=== PATIENT | female | born 1995 | race Caucasian/White ===

== ENCOUNTER 2019-08-27 09:24 | Inpatient (IN) ==
[2019-08-27] MEDS ORDERED: LACTATED RINGER'S 1,000 ML IV PRN (09:26)
[2019-08-27] MEDS ORDERED: OXYTOCIN 30 UNITS/500 ML BAG IV PRN ×2 (09:26→11:05)
[2019-08-27] MEDS ORDERED: OXYTOCIN 30 UNITS/500ML NSS ONE (09:37)
[2019-08-27] MEDS ORDERED: ePHEDrine sulfate 50 MG/ML AMP ONE (09:39)
[2019-08-27] MEDS ORDERED: fentaNYL citrate 100 MCG/2 ML VIAL ONE (09:39)
[2019-08-27] MEDS ORDERED: BUPIVACAINE 0.25% 30 ML VIAL ONE (09:39)
[2019-08-27] MEDS ORDERED: fentaNYL 2MCG/ML ROPIV 1.25MG/ML 100 ML BAG EPI ONE (09:40)
[2019-08-27 09:52] LABS: Hematocrit (blood only) 31.3 % (37-47); Hemoglobin 10.1 g/dL (12.0-16.0); Mean Corpuscular Hemoglobin 24.8 pg (25-34); Mean Corpuscular Volume 76.7 fL (80-100); Mean Platelet Volume 10.2 fL (7.4-10.4); Nucleated RBC # (auto) 0.02 K/uL (0-0); Nucleated RBC % (auto) 0.2 %; Platelet Count 271 K/uL (130-400); RDW Standard Deviation 42.2 fL (36.4-46.3); Red Blood Count 4.08 M/uL (4.2-5.4); White Blood Count 13.81 K/uL (4.8-10.8)
[2019-08-27] MEDS ORDERED: METHYLERGONOVINE MALEATE 0.2 MG/ML AMP ONE (09:59)
[2019-08-27 10:04] LABS: Mean Corpuscular Hgb Conc 32.3 g/dL (32-36)
--- NOTE | 2019-08-27 10:11 | Delivery Summary ---
Supervising Physician Co-Signing Physician Notes Pre-operative Diagnosis: at 39 5/7 weeks active labor Post-operative Diagnosis: same shoulder dystocia Procedure: small vaginal and right labial lac and repair EBL: 350cc Anesthesia: local lidocaine Procedure: The patient pushed for 2-3 contractions to deliver a viable female infant in murphy position. A loose nuchal cord x one was reduced. A shoulder dystocia was then encountered that lasted about 30 seconds and was resolved with Annette and suprapubic pressure. The rest of the infant was then delivered without difficulty. The baby was vigorous. The nose and mouth were again bulb suctioned and the infant was placed in the maternal abdomen for drying and attention. Cord was clamped and cut at about 45 seconds of life. Cord blood obtained. Placenta delivered spontaneous, intact with a three vessel cord. Cervix/sulci/rectum were intact. A small introital tear and right labial laceration were repaired in the normal standard fashion after infiltrating with lidocaine. Hemostasis obtained with dilute pitocin and fundal massage. Apgars were 8/9. Mother and baby doing well at the end of the delivery. Vaginal Delivery Summary Date of Service August 27, 2019
--- NOTE | 2019-08-27 10:17 | History & Physical Report ---
Date of Service August 27, 2019 Assessment & Plan (1) Normal labor: patient admitted, wanted epidural. However, too far along for this . So was agreeable to rom which was done for clear fluid. Please see delivery note for the procedure. Fetus reassuring. (2) Vaginal delivery: History of Present Illness Chief Complaint: contractions Primary Care Provider: NO PCP Patient is a 24yowf with iup at 39 5/7 weeks who presents to labor and delivery in active labor. Notes ctx started about 4am and lof about 7 am. has been uncomplicated except for diet GDM. labs--b-/ab-/pap nl/ri/rprnr/hepb-/hiv-/failed 16 week gtt, nl 2 hr/abnl 28 week 2hr/gbs neg Allergies Allergy/AdvReac Type Severity Reaction Status Date / Time No Known Drug Allergies Allergy Verified 08/17/19 14:48 Home Medications Home Medications Medication Instructions Recorded Confirmed Type 1 tab PO DAILY 06/14/19 08/26/19 History vitamin,calcium,jgqkcrpq-gasn-oytqu acid tablet acetone (urine) test strips #50 ea 06/23/19 08/17/19 Rx acetone (urine) test strips #50 ea 06/23/19 08/17/19 Rx blood sugar diagnostic strips #120 ea 06/23/19 08/17/19 Rx blood sugar diagnostic strips #120 ea 06/23/19 08/17/19 Rx ferrous sulfate 1 tab PO DAILY 06/23/19 08/26/19 History lancets 33 gauge #120 ea 06/23/19 08/17/19 Rx lancets 33 gauge #120 ea 06/23/19 08/17/19 Rx Patient History Social History Preferred Language: Romansh Communication Ability: Effective [employer] Inspector Required: No Beliefs That Will Affect Care: None marital status: Single Current Living Situation: Spouse and Family Feels Safe at Home: Yes Smoking Status: Never smoker Hx Alcohol Use: No Hx Substance Use: No OB History g1--09/04--39 weeks, , [place] g2--04/08--39 weeks, nsd, [facility] [employer] History no std, no abnl paps Review of Systems All systems reviewed & are unremarkable except as noted in HPI & below Physical Exam Constitutional: WD/WN, vitals as above Gastrointestinal (Abdomen): soft , gravid, nt Psychiatric: A+Ox3, euthymic affect Genitourinary: cx--8-9, bulging bag, 100%, 0 srom--clear fluid on glove arom for clear fluid at 9cm toco--q2-3min efm--120s with mod variability, variables with contractions. Results & Data Vital Signs (Past 12 Hours) Vital Signs Pulse BP 08/27/19 10:11 78 130/79 08/27/19 09:56 63 134/80 Code Status & VTE Plan VTE Prophylaxis Plan VTE Prophylaxis will be ordered: No
[2019-08-27] MEDS ORDERED: OXYCODONE/ACETAMINOPHEN 5mg/325mg TAB PO PRN (10:18)
[2019-08-27] MEDS ORDERED: ACETAMINOPHEN 325 MG TAB PO PRN (10:18)
[2019-08-27] MEDS: IBUPROFEN 600 MG TAB PO PRN ×3 (10:29→18:44)
[2019-08-27] MEDS ORDERED: bisacodyL 10 MG SUPP PR PRN (11:05)
[2019-08-27] MEDS ORDERED: DIPHTHERIA/TETANUS/PERTUSSIS 0.5 ML SYR/VIAL IM ONE (11:05)
[2019-08-27] MEDS ORDERED: METHYLERGONOVINE MALEATE 0.2 MG/ML AMP IM ONE (11:05)
[2019-08-27] MEDS ORDERED: SUPERCREAM 0.870% 15 GM JAR EXT PRN (11:05)
[2019-08-27] MEDS ORDERED: BENZOCAINE 20% AER SPR 82.5 GM CAN EXT PRN (11:05)
[2019-08-27] MEDS ORDERED: HYDROCORTISONE ACETATE 25 MG SUPP PR PRN (11:05)
[2019-08-27] MEDS: DOCUSATE SODIUM 100 MG CAP PO SCH (21:02)
[2019-08-28] MEDS: IBUPROFEN 600 MG TAB PO PRN ×3 (00:07→15:19)
--- NOTE | 2019-08-28 05:59 | Obstetrical Progress Note ---
Date of Service August 28, 2019 Assessment & Plan (1) Vaginal delivery: 24 y/o GDM s/p @ 39.5 weeks complicated by shoulder dystocia 30 seconds, resolved with Annette and suprapubic pressure. - PPD #1 - GBS negative, Blood Type B negative - Feels well today. Eating well, voiding well, ambulating well. - Pain well controlled. - Routine care - After discharge will have [address] Abdi. Supervising Physician Co-Signing Physician Notes Resident Physician Supervision Note: I interviewed and examined the patient. Discussed with Dr. Mackey and agree with findings and plan as documented in the note. Any exceptions or clarifications are listed here: Doing well. Desires d/c today. Instructions given. Documented By: Jessica Abdi MD, FACOG Subjective Doing well this morning with no questions and no concerns. Discussed working on walking eating and today. Review of Systems Constitutional: no fever and no chills Respiratory: no cough denies wheezing denies shortness of breath Cardiovascular: no chest pain and no palpitations Genitourinary: no dysuria, no urinary frequency and no urinary urgency Neurologic: denies headache Physical Exam Physical Exam: Abdomen soft and + BS fundus is firm and at the umbilicus Constitutional: well developed and well nourished; no acute distress Respiratory: normal respiratory effort, lungs clear to auscultation Cardiovascular: RRR, no murmur, no edema Results & Data Vital Signs (Past 12 Hours) Vital Signs Temp Pulse Pulse Resp BP Pulse Ox 08/28/19 04:25 36.5 C 73 18 109/69 08/28/19 00:05 36.5 C 97 H 18 103/65 08/27/19 20:04 37.3 C 78 16 110/73 99 Resident Activity Tracking Resident Involvement: Resident Care Provided Care Provided: Adult Hospital Medicine
[2019-08-28 06:36] LABS: Hematocrit (blood only) 26.2 % (37-47); Hemoglobin 8.4 g/dL (12.0-16.0)
[2019-08-28] MEDS ORDERED: PRENATAL VITAMIN 1 TAB PO SCH (08:00)
[2019-08-28] MEDS: DOCUSATE SODIUM 100 MG CAP PO SCH (08:29)
[2019-08-28] MEDS ORDERED: bisacodyL 5 MG TABEC PO SCH (20:00)
== END 2019-08-28 15:37 | disposition home or self-care (01) | DRG 807 ==
LOC: OPB 09:24 → 4S1 09:25 → 4S2 13:15